=== PATIENT | female | born 1950 | race Caucasian/White ===

== ENCOUNTER 2022-12-09 09:21 | Outpatient (CLI) | payer MEDICARE, BC, SELFPAY ==
--- NOTE | 2022-12-09 09:15 | RT.EKG_ITS ---
APPROVED REPORT Exam: Resting ECG Reason for Exam: ESSENTIAL HYPERTENSION Patient Location: O HR:57 bpm ECG Measurements Heart Rate 57 AXIS NV 226 P 73 QRSd 93 QRS 35 QT 482 T 35 QTc 470 Conclusion Sinus rhythm...normal P axis, V-rate 50- 99 Prolonged NV interval...NV >220, V-rate 50- 90
== END 2022-12-09 09:22 | disposition home or self-care (01) ==
PROVIDERS: PCP Family Medicine; Visit Provider Naturopath
DX: I10 Essential (primary) hypertension (principal)
CPT/HCPCS: 93005; 93010